=== PATIENT | male | born 1995 | race Caucasian/White ===

== ENCOUNTER 2020-10-16 14:57 | Outpatient (CLI) | payer OTHER ==
--- NOTE | 2020-10-16 16:48 | ULT ---
RENAL ULTRASOUND: 10/16/20 HISTORY: Frequent urination. Real time imaging of the right and left kidneys were performed. The right kidney measures 9.6 and the left kidney measures 9.8 cm in size. No cyst, mass or obstruction. On the images with the bladder fu ll, there is some echogenic areas along the posterior wall which I favor would probably be intralumin al, although is difficult to assess. Postvoid imaging is difficult to even say that these areas persi sted. IMPRESSION: Areas of nodularity along the posterior bladder wall. I am not certain if these are truly related to the bladder wall or more likely intraluminal and represents a type of debris, although I cannot see t hese on the postvoid images, it could still be present. The bladder is somewhat contracted. The postv oid residual is 41 mL. It would be unusual in a patient of this age group to have a bladder mass but a follow-up ultrasound of the bladder would be recommended. I am not certain if the patient has any U TI type symptoms. If she does have UTI symptoms, I would wait until these have been appropriately robb ated and then obtain short term follow-up bladder ultrasound. If there is no UTI, then follow-up ultr asound in 2 to 3 weeks would be recommended to reassess and exclude this representing bladder lesions . Correlation is also recommended as to whether patient has hematuria. POS: OFF
== END 2020-10-16 14:58 | disposition home or self-care (01) ==
LOC: BICULT 14:57
DX: R35.0 Frequency of micturition (principal); N32.89 Other specified disorders of bladder
CPT/HCPCS: 76770